=== PATIENT | female | born 1990 | race Caucasian/White ===

== ENCOUNTER 2019-09-09 19:43 | Emergency (ER) | payer MEDICAID ==
[~2019-09-09] VITALS: Ht 160 cm; Wt 77.1 kg
[2019-09-09 20:26] VITALS: Ht 160 cm; Wt 77.1 kg
[2019-09-09] MEDS ORDERED: MUCINEX DM ER1 EAC1 PO (21:52)
[2019-09-09] MEDS ORDERED: TAMIFLU75 MG PO (21:52)
[2019-09-09] MEDS ORDERED: ZOFRAN ODT4 MG/UDTAB PO (21:52)
[2019-09-09 22:14] VITALS: BP 117/66
== END 2019-09-09 22:14 | disposition home or self-care (01) ==
LOC: D.ER 19:43
DX: J11.1 Influenza due to unidentified influenza virus with other respiratory manifestations (principal); R11.2 Nausea with vomiting, unspecified

== ENCOUNTER 2019-11-15 21:22 | Emergency (ER) | payer MEDICAID ==
[~2019-11-15] VITALS: Ht 160 cm; Wt 80.9 kg
[~2019-11-15 21:22] MED LIST: MUCINEX DM ER1 EAC1 PO; TAMIFLU75 MG PO; ZOFRAN ODT4 MG/UDTAB PO
[2019-11-15 22:43] VITALS: BP 116/77; Ht 160 cm; Wt 80.9 kg
[2019-11-16] MEDS ORDERED: ZPAK PO (00:19)
[2019-11-16] MEDS ORDERED: MUCINEX DM ER1 EAC1 PO (00:19)
== END 2019-11-16 01:00 | disposition home or self-care (01) ==
LOC: D.ER 21:22
DX: J06.9 Acute upper respiratory infection, unspecified (principal); R05 Cough; R51 Headache

== ENCOUNTER 2020-02-17 21:37 | Emergency (ER) | payer OTHER ==
[~2020-02-17] VITALS: Ht 160 cm; Wt 90.9 kg
[~2020-02-17 21:37] MED LIST changes: +ZPAK PO
[2020-02-17 21:44] VITALS: Ht 160 cm; Wt 90.9 kg
[2020-02-17 22:20] LABS: BASOPHILS 0.4 % (0-2); EOSINOPHILS 2.4 % (0-7); HEMATOCRIT 41.7 % (36.0-48.0); HEMOGLOBIN 13.5 g/dL (12-16); IMMATURE GRANULOCYTES 0.3 % (0-5); LYMPHOCYTES 19.7 % (15-50); MCH 29.5 pg (26.0-34.0); MCHC 32.4 g/dL (31.0-37.0); MEAN PLATELET VOLUME 10.4 fL (7.4-10.4); MONOCYTES 6.5 % (2-11); NEUTROPHILS 70.7 % (40-80); PLATELET COUNT 279 10x3/uL (130-400); RBC 4.58 10x6/uL (4.00-5.40); RDW 13.4 % (11.5-14.5); WBC 11.9 10x3/uL (4.8-10.8)
[2020-02-17 22:25] LABS: CALC OSMOLALITY 276 mosm/kg (275-300); CALCIUM 8.5 mg/dL (8.5-10.1); CARBON DIOXIDE 25.4 mmol/L (21.0-32.0); CHLORIDE - SERUM 105 mmol/L (98-107); CREATININE - SERUM 0.9 mg/dL (0.6-1.3); GLUCOSE 107 mg/dL (74-106); POTASSIUM - SERUM 3.5 mmol/L (3.5-5.1); SODIUM 140 mmol/L (136-145); UREA NITROGEN 8 mg/dL (7-18); eGFR NON AFRICAN AMERICAN 80 mL/min (90-120)
[2020-02-17 22:31] LABS: HCG URINE NEGATIVE (NEGATIVE)
[2020-02-17 22:32] LABS: BACTERIA MANY /hpf (NEGATIVE); BILIRUBIN NEGATIVE (NEGATIVE); GLUCOSE NEGATIVE (NEGATIVE); KETONE NEGATIVE (NEGATIVE); NITRITE NEGATIVE (NEGATIVE); RED CELLS - URINE 0-5 /hpf (0-5); SPECIFIC GRAVITY 1.005 (1.005-1.020); UROBILINOGEN NORMAL (NORMAL); WHITE CELLS - URINE 0-5 /hpf (NEGATIVE)
[2020-02-17 22:33] LABS: AMORPHOUS SEDIMENT >1+ /lpf (NONE SEEN)
[2020-02-17 23:43] VITALS: BP 109/81
== END 2020-02-17 23:43 | disposition home or self-care (01) ==
LOC: D.ER 21:37
PROVIDERS: Emergency Medicine
DX: R51 Headache (principal)

== ENCOUNTER → 2020-06-05 07:33 | Outpatient (CLI) | payer OTHER ==
[2020-02-17 21:44] VITALS: BMI 35.5
== END | disposition home or self-care (01) ==
LOC: D.CT 07:33
PROVIDERS: ATTEND Clinical Nurse Specialist Family Health
DX: S92.255A Nondisplaced fracture of navicular [scaphoid] of left foot, initial encounter for closed fracture (principal)